=== PATIENT | female | born 1955 | race Caucasian/White ===

== ENCOUNTER 2020-12-04 11:43 | Emergency (ER) | payer OTHER ==
[~2020-12-04] VITALS: Ht 165.1 cm; Wt 69.4 kg
[2020-12-04] MEDS ORDERED: COZAAR 25 MG TA25 M1 PO (11:54)
[2020-12-04] MEDS ORDERED: OMEPRAZOLE40 MG PO (11:54)
[2020-12-04] MEDS ORDERED: HYDROCHLOROTH12.5 M2 PO (11:55)
[2020-12-04] MEDS ORDERED: SIMVASTATIN80 MG PO (11:55)
[2020-12-04 15:31] VITALS: BP 142/86
== END 2020-12-04 15:32 | disposition home or self-care (01) ==
LOC: M.ERS 11:43
DX: S06.0X9A Concussion with loss of consciousness of unspecified duration, initial encounter (principal); Z90.710 Acquired absence of both cervix and uterus; Z85.850 Personal history of malignant neoplasm of thyroid; Z85.89 Personal history of malignant neoplasm of other organs and systems; Z98.890 Other specified postprocedural states; W22.8XXA Striking against or struck by other objects, initial encounter; Y93.89 Activity, other specified; Y92.89 Other specified places as the place of occurrence of the external cause; Y99.8 Other external cause status